=== PATIENT | male | born 1950 | race Caucasian/White ===

== ENCOUNTER 2019-10-28 23:57 | Emergency (ER) | payer MEDICARE, SELFPAY ==
[2019-10-29] VITALS (12 sets, daily range): BP systolic 147–163; BP diastolic 71–85; PULSE 84–130; RESP 20; TEMP 38.1–38.2; O2SAT 95–99
--- NOTE | 2019-10-29 00:05 | ED.ABDPAIN ---
HPI - Abdominal Pain General Chief Complaint: Fever Stated Complaint: lower left side pain/left facial pain/fever earlie Time Seen by Provider: 10/29/19 00:00 Source: patient Mode of arrival: Ambulatory Limitations: no limitations History of Present Illness HPI narrative: 69-year-old male nonsmoker with a history of diverticulitis and facial melanoma presents with a chief complaint of left lower quadrant pain and subjective fever over the course of the day. He has been in touch with the providers at the [facility] who instructed him to present here for further evaluation. He had been on a 2 year course of chemotherapy but last dose was back in April. He is currently on a ?watch and wait ?protocol. He denies runny nose, sore throat, cough, chest pain or exposure to known COVID 19. His pain is in left lower quadrant, worse with motion and improves with rest. He denies any radiation. He has been a bit constipated which is not abnormal for him given his history of narcotic use. He is a bit nauseated but denies any vomiting. MD complaint: abdominal pain Onset (ago): hour(s) Pain Consistency: constant Location: LLQ Severity: moderate Quality: cramping Radiation: none Migration to: no migration Relieving factors: rest Exacerbating factors: movement Associated symptoms: nausea, fever, chills and constipation Related Data Home Medications Medication Instructions Recorded Confirmed ACETAMINOPHEN 500 mg OR Q DAY PRN #0 08/17/16 ibuprofen 600 mg PO TID PRN #0 08/17/16 Previous Rx's Medication Instructions Recorded tadalafil [Cialis] 5 mg PO QDAY #15 tab 05/16/16 hydrocodone-acetaminophen 1 - 2 tab PO Q6HP PRN #30 tab 10/16/16 alprazolam 1 mg PO SEE INSTRUCTIONS #30 tab 10/17/16 ciprofloxacin HCl 500 mg PO BID #20 tab 10/29/19 metronidazole [Flagyl] 500 mg PO Q8H #30 tab 10/29/19 Review of Systems Constitutional Constitutional: Reports chills, Denies fatigue, Reports fever(s), Denies frequent falls, Denies lethargy and Denies weakness Eyes Eyes: Denies change in vision, Denies eye discharge, Denies irritation and Denies loss of vision ENT Ears, Nose, Mouth, and Throat: Denies change in voice, Denies dizziness, Denies neck pain, Denies sore throat and Denies throat swelling Cardiovascular Cardiovascular: Denies chest pain, Denies irregular heart rhythm, Denies lightheadedness, Denies palpitations, Denies dyspnea, Denies dyspnea on exertion and Denies orthopnea Respiratory Respiratory: Denies cough, Denies dyspnea, Denies dyspnea on exertion and Denies wheezing Gastrointestinal Gastrointestinal: Reports abdominal pain, Denies change in bowel habits, Denies diarrhea, Reports nausea and Denies vomiting Musculoskeletal Musculoskeletal: Denies neck pain and Denies numbness Integumentary/Breasts Skin/Breast: Denies pruritus, Denies erythema, Denies rash and Denies wounds Neurologic Neurologic: Denies behavioral changes, Denies confusion, Denies dizziness, Denies frequent falls, Denies loss of vision, Denies numbness and Denies weakness Psychiatric Psychiatric: Denies anxiety, Denies behavioral changes, Denies confusion, Denies depression, Denies homicidal ideation and Denies suicidal ideation Endocrine Endocrine: Denies fatigue, Denies flushing and Denies palpitations Hematologic/Lymphatic Hematologic/Lymphatic: Denies easy bruising Allergic/Immunologic Allergic/Immunologic: Denies urticaria, Denies throat swelling and Denies wheezing Exam Narrative Exam Narrative: GENERAL: [69] year old patient appears stated age. Well-nourished, well-developed patient, in mild distress. HEAD: Atraumatic. Normocephalic. EYES: Pupils equal round and reactive. Extraocular motions intact. No scleral icterus. No injection or drainage. ENT: Nose without bleeding, purulent drainage. Throat without erythema, tonsillar hypertrophy or exudate. Airway patent. NECK: Trachea midline. Non tender CARDIOVASCULAR: Tachycardic but regular rhythm without murmurs, gallops, or rubs. RESPIRATORY: Clear to auscultation. Breath sounds equal bilaterally. No wheezes, rales, or rhonchi. GASTROINTESTINAL: Abdomen soft, tender in LLQ, nondistended. EXTREMITIES: No edema or joint tenderness. BACK: Nontender without deformity or crepitance. No flank tenderness. NEURO: AOx3. SKIN: No rash or erythema of visible areas Initial Vital Signs Initial Vital Signs: Vital Signs Temperature 100.8 F H 10/29/19 00:08 Pulse Rate 130 H 10/29/19 00:08 Respiratory Rate 10/29/19 00:08 Blood Pressure 163/85 H 10/29/19 00:08 Pulse Oximetry 97 10/29/19 00:08 Course Orders Ordered: ED Orders 10/29/19 00:10 XR chest 1V Stat 10/29/19 00:25 Complete Blood Count AUTO DIFF Stat Comprehensive Metabolic Panel Stat Lactate (Lactic Acid) Stat Procalcitonin Stat 10/29/19 00:30 Blood Culture Stat 10/29/19 00:53 CT abdomen pelvis w con Stat 10/29/19 02:25 White Blood Cell Count Stat Discontinued Medications Hydrocodone Bitart/Acetaminophen (Vicodin 5/325 Prepack) 1 bottle MISC SEEINSTR ONE Stop: 10/29/19 03:01 Last Admin: 10/29/19 03:37 Dose: 1 bottle Documented by: NEPTALI Hydromorphone HCl (Dilaudid) 0.5 mg IV NOW ONE Stop: 10/29/19 00:13 Last Admin: 10/29/19 00:25 Dose: 0.5 mg Documented by: LILLY Lactated Ringer's (Lactated Ringers) 1,000 mls @ 771 mls/hr IV NOW ONE Stop: 10/29/19 01:27 Last Infusion: 10/29/19 01:40 Dose: 0 mls/hr Documented by: Admin: 10/29/19 00:24 Dose: 771 mls/hr Documented by: LILLY Levofloxacin (Levaquin) 500 mg in 100 mls @ 100 mls/hr IV NOW ONE Stop: 10/29/19 01:10 Last Infusion: 10/29/19 01:39 Dose: 0 mls/hr Documented by: Admin: 10/29/19 00:25 Dose: 100 mls/hr Documented by: LILLY Metronidazole (Flagyl) 500 mg in 100 mls @ 100 mls/hr IV NOW ONE Stop: 10/29/19 03:06 Last Infusion: 10/29/19 03:30 Dose: 0 mls/hr Documented by: Admin: 10/29/19 02:29 Dose: 100 mls/hr Documented by: NEPTALI Ketorolac Tromethamine (Toradol) 15 mg IV NOW ONE Stop: 10/29/19 02:08 Last Admin: 10/29/19 02:30 Dose: 15 mg Documented by: NEPTALI Ondansetron HCl (Zofran) 4 mg IV NOW ONE Stop: 10/29/19 00:13 Last Admin: 10/29/19 00:25 Dose: 4 mg Documented by: LILYL Ondansetron HCl (Zofran Odt Prepack) 1 bottle MISC SEEINSTR ONE Stop: 10/29/19 03:01 Last Admin: 10/29/19 03:37 Dose: 1 bottle Documented by: NEPTALI Reevaluation(s) Reevaluation #1: patient feeling much better after the above stated therapies. HR is now down to the 70s and 80s. pain improved. No rigors. Consultations Consultation #1: discussion with ammonia solution preparer surgery. We share opinion that though patient was initially demonstrating signs of possible sepsis that he has improved significantly. CT shows no sign of abscess or perforation. Vital Signs Vital signs: Vital Signs - 8 hr 10/29/19 00:08 10/29/19 00:32 10/29/19 01:00 Temperature 100.8 F H Pulse Rate 130 H 104 H 99 H Respiratory Rate 20 Blood Pressure 163/85 H Pulse Oximetry 97 97 95 10/29/19 01:14 10/29/19 01:30 10/29/19 01:36 Temperature Pulse Rate 96 H 96 H 89 Respiratory Rate 20 Blood Pressure 147/80 H 147/80 H Pulse Oximetry 99 97 97 10/29/19 02:00 10/29/19 02:30 10/29/19 02:50 Temperature 100.6 F H Pulse Rate 93 H 84 Respiratory Rate Blood Pressure Pulse Oximetry 96 98 10/29/19 03:00 10/29/19 03:30 Temperature Pulse Rate 96 H 85 Respiratory Rate Blood Pressure Pulse Oximetry 97 96 MDM - Abdominal Pain Lab Data Result diagrams: 10/29/19 02:25 10/29/19 00:25 Labs: Lab Results 10/29/19 10/29/19 10/29/19 Range/Units 00:25 00:25 00:25 WBC 20.5 H (4.5-11.0) X10^3/uL RBC 4.77 (4.5-5.9) X10^6/uL Hgb 14.9 (13.5-17.5) g/dL Hct 43.4 (41-53) % MCV 91.0 (80-100) fL MCH 31.1 (26-34) PG MCHC 34.2 (30-36) % RDW 14.0 (11.6-14.8) % Plt Count 247 (150-400) X10^3/uL Neut % (Auto) 83.9 H (50-75) % Lymph % (Auto) 7.2 L (25-40) % [place] % (Auto) 8.0 (3-14) % Eos % (Auto) 0.4 L (2-4) % Baso % (Auto) 0.5 (0-2) % Neut # (Auto) 89945 H (1913-1454) /uL Lymph # (Auto) 1500 (4146-2152) /uL [place] # (Auto) 1600 H (0-900) /uL Eos # (Auto) 100 (0-450) /uL Baso # (Auto) 100 (0-100) /uL Sodium 135 L (137-145) mmol/L Potassium 3.8 (3.4-5.1) mmol/L Chloride 100 (98-107) mmol/L Carbon Dioxide 25 (22-32) mmol/L BUN 28 H (9-20) mg/dL Creatinine 0.98 (0.66-1.25) mg/dL Estimated GFR > 60.0 (>60) mL/min BUN/Creatinine Ratio 28.6 H (6-22) Glucose 96 (80-110) mg/dL Lactate (0.7-2.1) mmol/L Calcium 9.8 (8.4-10.2) mg/dL Total Bilirubin 0.7 (0.2-1.3) mg/dL AST 35 (17-59) IU/L ALT 30 (<50) IU/L Alkaline Phosphatase 59 (38-126) U/L Total Protein 7.4 (6.3-8.2) g/dL Albumin 4.5 (3.5-5.0) g/dL Globulin 2.9 (1.7-4.1) g/dL Albumin/Globulin Ratio 1.6 (1.0-2.8) Procalcitonin < 0.05 (<0.5) ng/mL 10/29/19 10/29/19 Range/Units 00:25 02:25 WBC 20.2 H (4.5-11.0) X10^3/uL RBC (4.5-5.9) X10^6/uL Hgb (13.5-17.5) g/dL Hct (41-53) % MCV (80-100) fL MCH (26-34) PG MCHC (30-36) % RDW (11.6-14.8) % Plt Count (150-400) X10^3/uL Neut % (Auto) (50-75) % Lymph % (Auto) (25-40) % [place] % (Auto) (3-14) % Eos % (Auto) (2-4) % Baso % (Auto) (0-2) % Neut # (Auto) (6183-2736) /uL Lymph # (Auto) (3037-7646) /uL [place] # (Auto) (0-900) /uL Eos # (Auto) (0-450) /uL Baso # (Auto) (0-100) /uL Sodium (137-145) mmol/L Potassium (3.4-5.1) mmol/L Chloride (98-107) mmol/L Carbon Dioxide (22-32) mmol/L BUN (9-20) mg/dL Creatinine (0.66-1.25) mg/dL Estimated GFR (>60) mL/min BUN/Creatinine Ratio (6-22) Glucose (80-110) mg/dL Lactate 1.0 (0.7-2.1) mmol/L Calcium (8.4-10.2) mg/dL Total Bilirubin (0.2-1.3) mg/dL AST (17-59) IU/L ALT (<50) IU/L Alkaline Phosphatase (38-126) U/L Total Protein (6.3-8.2) g/dL Albumin (3.5-5.0) g/dL Globulin (1.7-4.1) g/dL Albumin/Globulin Ratio (1.0-2.8) Procalcitonin (<0.5) ng/mL Point of care testing: Urine Dip Bedside Urine Glucose 100 mg/dl Bedside Urine Ketone - Negative Urine Specific [place] 1.015 Bedside Urine Occult Blood - Negative Bedside Urine pH 6.0 Bedside Urine Protein - Negative Bedside Urine Urobilinogen - Negative Bedside Urine Nitrite - Negative Bedside Urine Leukocytes - Negative Esterase Imaging Data CT scan - abdomen/pelvis: Radiologist's Impression: Diverticulitis without sign of perforation or abscess MDM Narrative Medical decision making narrative: Patient presents with signs of sepsis. Aggressive fluids, pain control, ABX given. Patient clinically greatly improved. No perforation or abscess on imaging. Extensive discussion with patient and he would prefer to go home and return if he doesn't do ok at home. He understands return precautions and is in agreement with the plan. Discharge Plan Departure Patient Disposition: Home Clinical Impression: Diverticulitis Activity Restrictions/Additional Instructions: *You have been diagnosed with [acute diverticulitis without evidence of abscess or perforation] *What to do: *Take medications as directed. Please consider a clear liquid diet for the next 24-48 hours and then advance to a bananas, rice, apples, toast (BRAT) diet for a day or 2 and then advance as tolerated *Follow up with your primary care provider in 2-3 days, call for an appointment. Let them know you were seen in the Emergency Department and that we ask that you be seen in follow up *Return to ER if you should have any new, worsening or concerning symptoms, such as [worsening pain, ongoing shaking chills, vomiting or other bothersome symptoms] Prescriptions: New ciprofloxacin HCl 500 mg tablet 500 mg PO BID Qty: 20 RF: 0 metronidazole [Flagyl] 500 mg tablet 500 mg PO Q8H Qty: 30 RF: 0 No Action tadalafil [Cialis] 5 MG tablet 5 mg PO QDAY Qty: 15 RF: 5 ACETAMINOPHEN 500 mg OR Q DAY PRNQty: 0 RF: 0 ibuprofen 600 MG tablet 600 mg PO TID PRNQty: 0 RF: 0 hydrocodone-acetaminophen 5 MG/325 MG tablet 1 - 2 tab PO Q6HP PRNQty: 30 RF: 0 alprazolam 1 MG tablet 1 mg PO SEE INSTRUCTIONS Qty: 30 RF: 1 Referrals: Jackson Kendall MD [Primary Care Provider] - Brittani Horton MD [Physician] -
--- NOTE | 2019-10-29 00:10 | DI.RAD.S_ITS ---
PROCEDURE: XR CHEST 1V INDICATIONS: sepsis TECHNIQUE: One view of the chest was acquired. COMPARISON: None. FINDINGS: Surgical changes and devices: None. Lungs and pleura: Lungs are clear. No pleural effusions or pneumothorax. Mediastinum: Mediastinal contours appear normal. Heart size is normal. Bones and chest wall: No suspicious bony lesions. Overlying soft tissues appear unremarkable. IMPRESSION: No acute cardiopulmonary disease process. Dictated by: Rhona Lane MD, PhD on 10/29/2019 at 8:21 Approved by: Rhona Lane MD, PhD on 10/29/2019 at 8:21
[2019-10-29] MEDS: LACTATED RINGERS 1,000 ML 771 ML IV (00:24)
[2019-10-29] MEDS: HYDROMORPHONE 0.5 MG INJ IV (00:25)
[2019-10-29] MEDS: levoFLOXacin 500 MG/100 ML PIGGYBACK 100 MG IV (00:25)
[2019-10-29] MEDS: ONDANSETRON 4 MG/2 ML INJ IV (00:25)
[2019-10-29 00:40] LABS: Add Manual Diff / Slide Review NO; Basophils Absolute Auto 100 /uL (0-100); Basophils Percent Auto 0.5 % (0-2); Eosinophils Absolute Auto 100 /uL (0-450); Eosinophils Percent Auto 0.4 % (2-4); Hematocrit 43.4 % (41-53); Hemoglobin 14.9 g/dL (13.5-17.5); Lymphocytes Absolute Auto 1500 /uL (1100-4500); Lymphocytes Percent Auto 7.2 % (25-40); Mean Corpuscular HGB Conc 34.2 % (30-36); Mean Corpuscular Hemoglobin 31.1 PG (26-34); Monocytes Absolute Auto 1600 /uL (0-900); Neutrophils Absolute Auto 17200 /uL (1500-7000); Neutrophils Percent Auto 83.9 % (50-75); Platelet Count 247 X10^3/uL (150-400); Red Blood Cell Count 4.77 X10^6/uL (4.5-5.9); White Blood Cell Count 20.5 X10^3/uL (4.5-11.0)
[2019-10-29 00:48] LABS: Alanine Aminotransferase 30 IU/L (<50); Albumin 4.5 g/dL (3.5-5.0); Albumin Globulin Ratio 1.6 (1.0-2.8); Alkaline Phosphatase 59 U/L (38-126); Aspartate Aminotransferase 35 IU/L (17-59); BUN Creatinine Ratio 28.6 (6-22); Bilirubin Total 0.7 mg/dL (0.2-1.3); Blood Urea Nitrogen 28 mg/dL (9-20); Calcium 9.8 mg/dL (8.4-10.2); Carbon Dioxide 25 mmol/L (22-32); Chloride 100 mmol/L (98-107); Estimated Glomerular Filt Rate > 60.0 mL/min (>60); Globulin 2.9 g/dL (1.7-4.1); Glucose 96 mg/dL (80-110); HEMOLYSIS < 15 (0-50); Potassium 3.8 mmol/L (3.4-5.1); Sodium 135 mmol/L (137-145); Total Protein 7.4 g/dL (6.3-8.2)
--- NOTE | 2019-10-29 00:53 | DI.CT.S_ITS ---
PROCEDURE: CT ABDOMEN PELVIS W CON INDICATIONS: Severe Left lower quadrant pain, sepsis TECHNIQUE: After the administration of intravenous contrast, 5 mm thick sections acquired from the diaphragm to the symphysis. 5 mm coronal and sagittal reformats were acquired. For radiation dose reduction, the following was used: automated exposure control, adjustment of mA and/or kV according to patient size. COMPARISON: [place], [place], PET/CT SKULL BASE TO MID THIGH, 12/29/2016, 10:34. [facility], , STROKE PROTOCOL, 08/17/2016, 15:31. FINDINGS: Image quality: Excellent. ABDOMEN: Lung bases: Lung bases are clear. Heart size is normal. Solid organs: Liver is normal in size and enhancement. Gallbladder is normal. Biliary system is non dilated. Pancreas enhances normally. Spleen is normal in size and enhancement. No adrenal nodules. Kidneys demonstrate normal size and enhancement, without hydronephrosis. Peritoneum and bowel: There are numerous colonic diverticula. There is focal thickening and pericolonic stranding and sigmoid colon consistent with acute diverticulitis. There is a 1.7 x 1.8 x 2.2 cm complex rim enhancing fluid collection in the left lower quadrant adjacent to the sigmoid colon, consistent with a small diverticular abscess. A small amount of free fluid is present. No free air. Bowel loops demonstrate normal caliber. Nodes and vessels: No retroperitoneal or mesenteric adenopathy by size criteria. Aorta and inferior vena cava are normal in size. Miscellaneous: No ventral hernias. PELVIS: Genitourinary: Bladder wall thickness is normal. Bladder is distended. Prostate is enlarged. Miscellaneous: No inguinal hernias or adenopathy. Bones: No suspicious bony lesions. No vertebral body compression fractures. IMPRESSION: 1. Acute sigmoid diverticulitis. A small diverticular abscess is present in the left lower quadrant measuring 1.7 x 1.8 x 2.2 cm. No free air. 2. Enlarged prostate with distended urinary bladder suggesting bladder outlet obstruction. The preliminary report correctly described acute diverticulitis. The small diverticular abscess was not reported on the preliminary result. The result was discussed with Dr. Jaramillo in ER on 10/29/2019 at 0825 hours. Dictated by: Kelsie Rodriguez M.D. on 10/29/2019 at 8:09 Approved by: Kelsie Rodriguez M.D. on 10/29/2019 at 8:28
[2019-10-29 01:04] LABS: Procalcitonin < 0.05 ng/mL (<0.5)
[2019-10-29] MEDS: metroNIDAZOLE 500 MG/100 ML PIGGYBACK 100 MG IV (02:29)
[2019-10-29] MEDS: KETOROLAC 60 MG/2 ML VIAL 15 MG IV (02:30)
[2019-10-29 02:32] LABS: White Blood Cell Count 20.2 X10^3/uL (4.5-11.0)
[2019-10-29] MEDS: HYDROCODONE/ACET 5/325 PREPACK 1 BOTTLE MISC (03:37)
[2019-10-29] MEDS: ONDANSETRON 4 MG ODT PREPACK 1 BOTTLE MISC (03:37)
== END 2019-10-29 04:37 | disposition home or self-care (01) ==
PROVIDERS: Emergency Provider Emergency Medicine; PCP Family Medicine
DX: K57.92 Diverticulitis of intestine, part unspecified, without perforation or abscess without bleeding (principal); R50.9 Fever, unspecified; R11.0 Nausea; K59.00 Constipation, unspecified; R00.0 Tachycardia, unspecified
CPT/HCPCS: 36415; 71045; 74177; 80053; 81003; 83605; 84145; 85025; 85048; 87040; 96365; 96367; 96375; 99284; J1170; J1885; J1956; J2405; Q9967

== ENCOUNTER → 2022-04-04 11:33 | Outpatient (CLI) | payer MEDICARE, SELFPAY ==
--- NOTE | 2022-04-04 | DI.MRI.S_ITS ---
PROCEDURE: MR HEAD/BRAIN WO/W CON INDICATIONS: MALIGNANT MELANOMA OF SKIN TECHNIQUE: Noncontrast axial T1 spin echo, axial T2 fast spin echo, sagittal and axial FLAIR, coronal T2 fast spin echo, axial gradient echo, axial diffusion and ADC through the brain. After the administration of contrast, axial and coronal and sagittal T1 spin echo with fat saturation through the brain. COMPARISON: [facility], MR, STROKE PROTOCOL, 08/17/2016, 15:31. [facility], CT, HEAD WITHOUT CONTRAST, 08/17/2016, 14:32. [facility], [place], [place] PET CT FUSION WHOLE BODY, 03/15/2022, 10:23. Outside Facility, [place], CT SOFT TISSUE NECK WITH CONTRAST, 12/21/2021, 11:52. FINDINGS: Image quality: Excellent. CSF spaces: Basal cisterns are patent. No extra-axial fluid collections. Ventricles are normal in size and shape. Brain: No midline shift. No intracranial bleeds or masses. No abnormal intracranial enhancement. There is cerebral volume loss for age. There is periventricular white matter chronic small vessel ischemic change. The brainstem appears normal. Diffusion-weighted images demonstrate no acute ischemic insults. No chronic ischemic insults. Normal intravascular flow voids are present. Skull and face: In this patient with this given history, scrutiny is given to left-sided Molly. No focal abnormality can be seen at this site. No abnormal enhancement is seen. On the 2017 MRI, there can be seen a mass anterior to the left maxilla within the left medial cheek. No definite enhancing mass can be seen at this site. Calvarial marrow is normal in signal. Orbits appear normal. Sinuses: Sinuses and mastoids appear clear. IMPRESSION: No MRI abnormality is seen to correspond to the recent PET-CT abnormality involving the left zygoma. No recurrent mass is seen anterior to the left maxilla. No intracranial masses or abnormal enhancement can be seen. No findings of acute or subacute infarction can be seen. Dictated by: Felipe Anne M.D. on 04/04/2022 at 13:13 Approved by: Felipe Anne M.D. on 04/04/2022 at 13:18
== END ==
PROVIDERS: PCP Family Medicine; Referring Provider Internal Medicine Hematology & Oncology; Visit Provider Internal Medicine Hematology & Oncology
DX: C73 Malignant neoplasm of thyroid gland (principal); C43.9 Malignant melanoma of skin, unspecified; R93.0 Abnormal findings on diagnostic imaging of skull and head, not elsewhere classified
CPT/HCPCS: 70553; A9579

== ENCOUNTER → 2022-05-24 13:30 | Outpatient (CLI) | payer MEDICARE, SELFPAY ==
--- NOTE | 2022-05-24 | DI.MRI.S_ITS ---
PROCEDURE: MR FEMUR LT WO/W CON INDICATIONS: Malignant melanoma of skin/neoplasm of thyroid TECHNIQUE: Noncontrast coronal T1 spin echo and STIR, sagittal T1 spin echo with fat saturation and STIR, axial T1 spin echo and T2 fast spin echo with fat saturation. After the administration of contrast, axial/sagittal/coronal T1 spin echo with fat saturation through the left thigh. COMPARISON: [place], [place], [place] PET CT FUSION WHOLE BODY, 03/15/2022, 10:23. FINDINGS: Image quality: Excellent. Bones: The visualized bone marrow demonstrates normal signal on all sequences. The overlying cortex appears intact. No abnormal intraosseous enhancement. Soft tissues: No soft tissue masses are visualized. The scanned muscles demonstrate normal overall bulk and internal signal. No signal abnormality is noted within left semitendinosis muscle. No signal abnormality is seen in left gluteus muscles. No abnormal intramuscular enhancement. Visualized pelvis show normal bladder wall thickness and normal appearing prostate gland and seminal vesicles. No pelvic lymphadenopathy. No pelvic free fluid. IMPRESSION: 1. No enhancing soft tissue mass or fluid collection. No abnormal muscle signal. No area of abnormal intramuscular enhancement. Specifically, no signal abnormality is seen in left gluteus medius muscle or left semitendinosis muscle to account for PET-CT findings. Finding may represent resolved myositis. 2. No marrow signal abnormality. No suspicious intraosseous lesion or abnormal intraosseous enhancement. No evidence of avascular necrosis of femoral head. Dictated by: Andres Matson M.D. on 05/24/2022 at 16:13 Approved by: Andres Matson M.D. on 05/24/2022 at 16:17
== END ==
PROVIDERS: PCP Family Medicine; Referring Provider Internal Medicine Hematology & Oncology; Visit Provider Internal Medicine Hematology & Oncology
DX: C43.9 Malignant melanoma of skin, unspecified (principal); C73 Malignant neoplasm of thyroid gland
CPT/HCPCS: 73720

== ENCOUNTER → 2022-10-24 10:39 | Outpatient (CLI) | payer MEDICARE, SELFPAY ==
--- NOTE | 2022-10-24 | DI.CT.S_ITS ---
PROCEDURE: CT SOFT TISSUE NECK W CON INDICATIONS: CANCER OF THYROID TECHNIQUE: After the administration of intravenous contrast, 3.0 mm axial sections acquired from the sella to the aortic arch. Additional oblique axial 3.0 mm sections acquired through the pharynx. 3 mm thick coronal and sagittal reformats were generated. For radiation dose reduction, the following was used: automated exposure control. COMPARISON: Outside Facility, [place], CT SOFT TISSUE NECK WITH CONTRAST, 12/21/2021, 11:52. FINDINGS: Image quality: Excellent. Lymph nodes: No enlarged lymph nodes seen throughout the neck. Vessels: Visualized vasculature appears patent. Atherosclerotic vascular calcifications are present. Neck spaces: Again noted fatty atrophy of the left muscles of mastication. The oropharynx, nasopharynx, and pharynx demonstrate no mucosal lesions. The vocal cords, false vocal cords, pyriform sinuses, epiglottis, vallecula, and tongue base all appear normal. Extramucosal spaces appear unremarkable. Glands: The parotid and submandibular glands appear normal. Thyroid gland is surgically absent. no suspicious nodularity within the surgical bed. Miscellaneous: Visualized brain and orbits appear normal. Lung apices appear clear. Superficial soft tissues appear normal. Bones: No suspicious bony lesions. Degenerative changes of the cervical spine, worse at C5-C6. Visualized sinuses and mastoids appear unremarkable. Right mandibular 1st molar dental kathy is again noted. IMPRESSION: Stable postoperative appearance of thyroidectomy without evidence of local recurrence. No new or enlarging cervical lymphadenopathy. Dictated by: Barry Graham M.D. on 10/25/2022 at 8:45 Approved by: Barry Graham M.D. on 10/25/2022 at 8:53
== END ==
PROVIDERS: PCP Family Medicine; Referring Provider Radiology Radiation Oncology; Visit Provider Radiology Radiation Oncology
DX: C73 Malignant neoplasm of thyroid gland (principal); E89.0 Postprocedural hypothyroidism
CPT/HCPCS: 70491

== ENCOUNTER → 2023-06-18 12:29 | Outpatient (CLI) | payer MEDICARE, SELFPAY ==
--- NOTE | 2023-06-18 | DI.CT.S_ITS ---
PROCEDURE: CT CHEST W CON INDICATIONS: MALIGNANT MELANOMA TECHNIQUE: After the administration of intravenous contrast, 5 mm thick sections acquired from the pulmonary apices to the posterior costophrenic angles. 1 mm axial lung, 5 mm thick coronal and sagittal reformats and 7 mm axial MIP were acquired. For radiation dose reduction, the following was used: automated exposure control, adjustment of mA and/or kV according to patient size. COMPARISON: [facility] Facility, [place], CT PET WHOLE BODY, 09/24/2020, 13:10. FINDINGS: Image quality: Diagnostic. Lower Neck: No enlarged lymph nodes. Thyroid: Absent. Axillae: No enlarged lymph nodes. Chest Wall: Unremarkable. Bones: No suspicious osseous lesion. Lungs and Pleura: No pneumothorax or pleural effusions. No consolidation or suspicious nodules. Heart: Heart size is normal. No pericardial effusion. Thoracic Vessels: The aorta and pulmonary arteries demonstrate normal size. Mediastinum and [place]: No enlarged lymph nodes. Esophagus: No wall thickening. No hiatal hernia. Upper Abdomen: Visualized upper abdomen solid organs and bowel loops appear normal. Duodenal diverticulum. No adrenal nodule. IMPRESSION: 1. No mass or significant pulmonary nodules. 2. No adenopathy. 3. Lungs are clear. Dictated by: Chandan Benitez M.D. on 06/18/2023 at 15:34 Approved by: Chandan Benitez M.D. on 06/18/2023 at 15:39
[2023-06-18 12:59] LABS: Estimated Glomerular Filt Rate > 60 mL/min (>60)
== END ==
PROVIDERS: Radiology Diagnostic Radiology; PCP Family Medicine; Referring Provider Internal Medicine Hematology & Oncology; Visit Provider Internal Medicine Hematology & Oncology
DX: C43.9 Malignant melanoma of skin, unspecified (principal); C73 Malignant neoplasm of thyroid gland
CPT/HCPCS: 36415; 71260; 82565; Q9967

== ENCOUNTER → 2023-07-03 12:16 | Outpatient (CLI) | payer MEDICARE, SELFPAY ==
--- NOTE | 2023-07-03 12:22 | DI.CT.S_ITS ---
PROCEDURE: CT SOFT TISSUE NECK W CON INDICATIONS: Malignant melanoma of skin, TECHNIQUE: After the administration of intravenous contrast, 3.0 mm axial sections acquired from the sella to the aortic arch. 3 mm thick coronal and sagittal reformats were generated. For radiation dose reduction, the following was used: automated exposure control. COMPARISON: Outside Facility, [place], CT SOFT TISSUE NECK WITH CONTRAST, 02/24/2021, 11:50. [facility], MR, MR HEAD/BRAIN WO/W CON, 07/03/2023, 12:36. [facility], CT, CT SOFT TISSUE NECK W CON, 10/24/2022, 10:52. FINDINGS: Skull Base: The visualized intracranial contents, skull, and orbits are unremarkable. Visualized paranasal sinuses are clear. Pharynx and Larynx: The nasopharyngeal airway is patent and midline. Parapharyngeal soft tissues including palatine tonsils and base of the tongue are normal. Retropharyngeal space unremarkable. Normal appearance of the false and true vocal cords. Muscles and Fascial Planes: Complete fatty atrophy of the left pterygoid , masseter and visualized buccinator musculature Lymph Nodes: No evidence of adenopathy. Vasculature: Dense atherosclerotic vascular calcification the proximal carotid arteries Submandibular and Parotid Glands: Normal in size and attenuation. Thyroid: Thyroidectomy Bones: No acute fracture. No osteolytic or blastic lesion is evident. Normal bone mineralization. Lung Apices: The visualized lung apices are clear. IMPRESSION: 1. Stable fatty atrophy of the left infratemporal musculature probably related to prior cancer therapy. 2. No evidence of recurrent or residual disease status post thyroidectomy. No adenopathy. Approved by: Dov Elizondo M.D. on 07/03/2023 at 18:25
--- NOTE | 2023-07-03 12:22 | DI.MRI.S_ITS ---
PROCEDURE: MR HEAD/BRAIN WO/W CON INDICATIONS: Malignant melanoma of skin, TECHNIQUE: Noncontrast axial T1 spin echo, axial T2 fast spin echo, sagittal and axial FLAIR, coronal T2 fast spin echo, axial gradient echo, axial diffusion and ADC through the brain. After the administration of contrast, axial and coronal and sagittal T1 spin echo with fat saturation through the brain. COMPARISON: [facility], [place], NM PET CT FUSION WHOLE BODY, 12/13/2022, 10:20. [facility], MR, STROKE PROTOCOL, 08/17/2016, 15:31. [facility], MR, MR HEAD/BRAIN WO/W CON, 04/04/2022, 11:42. [facility], CT, HEAD WITHOUT CONTRAST, 08/17/2016, 14:32. [facility], CT, CT SOFT TISSUE NECK W CON, 07/03/2023, 13:17. FINDINGS: Image quality: Excellent. CSF spaces: Basal cisterns are patent. No extra-axial fluid collections. Ventricles are normal in size and shape. Brain: No midline shift. No intracranial bleeds or masses. No abnormal intracranial enhancement. There is cerebral volume loss for age. There is periventricular white matter chronic small vessel ischemic change. The brainstem appears normal. Diffusion-weighted images demonstrate no acute infarct. No chronic ischemic insults. Normal intravascular flow voids are present. Symmetric calcification can be seen involving the basal ganglia, which is considered to be normal for age. Skull and face: Calvarial marrow is normal in signal. Orbits appear normal. No masses are seen involving the left cheek. Sinuses: Sinuses and mastoids appear clear. IMPRESSION: No masses or abnormal enhancement can be seen. No masses are seen involving the left cheek, at the site of the previously identified mass. Dictated by: Felipe Anne M.D. on 07/03/2023 at 12:57 Approved by: Felipe Anne M.D. on 07/03/2023 at 13:05
== END ==
PROVIDERS: PCP Family Medicine; Visit Provider Internal Medicine Hematology & Oncology
DX: C73 Malignant neoplasm of thyroid gland; C43.9 Malignant melanoma of skin, unspecified; I65.29 Occlusion and stenosis of unspecified carotid artery
CPT/HCPCS: 70491; 70553; A9579; Q9967

== ENCOUNTER → 2024-02-20 11:30 | Outpatient (CLI) | payer MEDICARE, SELFPAY ==
--- NOTE | 2024-02-20 11:34 | DI.MRI.S_ITS ---
PROCEDURE: MR HEAD/BRAIN WO/W CON INDICATIONS: MALIGNANT MELANOMA TECHNIQUE: Noncontrast axial T1 spin echo, axial T2 fast spin echo, sagittal and axial FLAIR, coronal T2 fast spin echo, axial gradient echo, axial diffusion and ADC through the brain. After the administration of contrast, axial and coronal and sagittal T1 spin echo with fat saturation through the brain. COMPARISON: [facility], [place], NM PET CT FUSION WHOLE BODY, 12/13/2022, 10:20. [facility], MR, MR HEAD/BRAIN WO/W CON, 07/03/2023, 12:36. FINDINGS: Image quality: Excellent. CSF spaces: Basal cisterns are patent. No extra-axial fluid collections. Ventricles are normal in size and shape. Brain: No midline shift. No intracranial bleeds or masses. No abnormal intracranial enhancement. There is cerebral volume loss for age. There is periventricular white matter chronic small vessel ischemic change. The brainstem appears normal. Diffusion-weighted images demonstrate no acute infarct. No chronic ischemic insults. Normal intravascular flow voids are present. Skull and face: Calvarial marrow is normal in signal. Orbits appear normal. Sinuses: Sinuses and mastoids appear clear. IMPRESSION: 1. No acute intracranial process. No visualized metastatic disease. 2. Moderate atrophy and chronic microvascular ischemic changes. Dictated by: Anya Hall M.D. on 02/20/2024 at 17:53 Approved by: Anya Hall M.D. on 02/20/2024 at 17:55
--- NOTE | 2024-02-20 11:34 | DI.CT.S_ITS ---
PROCEDURE: CT CHEST ABD PEL W CON INDICATIONS: MALIGNANT MELANOMA TECHNIQUE: After the administration of intravenous contrast, 5 mm thick sections acquired from the lung apices to the symphysis. 5 mm coronal and sagittal reformats were performed, with additional 7 mm MIP reformats through the lungs. For radiation dose reduction, the following was used: automated exposure control, adjustment of mA and/or kV according to patient size. COMPARISON: CT, CT CHEST W CON, 06/18/2023, 12:14. [place], [place], CT PET CT FUSION WHOLE BODY, 12/13/2022, 10:20. CT, CT ABDOMEN PELVIS W CON, 10/29/2019, 0:51. FINDINGS: Image quality: Excellent. CHEST: Lower Neck: No enlarged lymph nodes. Thyroid: Appears removed with surgical clips. Axillae: No enlarged lymph nodes. Chest Wall: Unremarkable. Lungs and Pleura: No pneumothorax or pleural effusions. No consolidation or suspicious nodules. Heart: Heart size is normal. No pericardial effusion. Thoracic Vessels: The aorta and pulmonary arteries demonstrate normal size. Mediastinum and Maria Teresa: No enlarged lymph nodes. Esophagus: No wall thickening. No hiatal hernia. ABDOMEN: Liver: No solid mass. Gallbladder: No radiopaque gallstones or wall thickening. Biliary ducts: No biliary dilation. Pancreas: No ductal dilation. Spleen: Size is within normal limits. Adrenal Glands: No adrenal nodules. Kidneys and Ureters: No hydronephrosis. No solid mass. No complex renal cystic lesion which requires follow up. Stomach and Bowel: Normal colonic caliber, without significant wall thickening. Diverticulosis. Peritoneum: No abnormal intraperitoneal fluid. No free air. Ventral Wall: No significant ventral hernia. Abdominal Nodes: No retroperitoneal or mesenteric adenopathy by size criteria. Vessels: Aorta and inferior vena cava are normal in size. PELVIS: Pelvic Organs: Prostate gland is. Bladder: No bladder wall thickening, accounting for underdistention. Pelvic Nodes: No enlarged lymph nodes. Miscellaneous: No inguinal hernias are seen. Bones: No aggressive osseous abnormality. IMPRESSION: No evidence malignancy. Diverticulosis. Dictated by: Anya Hall M.D. on 02/20/2024 at 17:03 Approved by: Anya Hall M.D. on 02/20/2024 at 17:11
--- NOTE | 2024-02-20 11:34 | DI.CT.S_ITS ---
PROCEDURE: CT SOFT TISSUE NECK W CON INDICATIONS: MALIGNANT MELANOMA TECHNIQUE: After the administration of intravenous contrast, 3.0 mm axial sections acquired from the sella to the aortic arch. Additional oblique axial 3.0 mm sections acquired through the pharynx. 3 mm thick coronal and sagittal reformats were generated. For radiation dose reduction, the following was used: automated exposure control. COMPARISON: [facility], [place], NM PET CT FUSION WHOLE BODY, 12/13/2022, 10:20. [facility], MR, MR HEAD BRAIN WO W CON, 02/20/2024, 13:42. [facility], CT, CT SOFT TISSUE NECK W CON, 07/03/2023, 13:17. Outside Facility, [place], CT SOFT TISSUE NECK WITH CONTRAST, 12/21/2021, 11:52. [facility], CT, CT CHEST ABD PEL W CON, 02/20/2024, 12:35. (Additional prior imaging is not available for review from the archive at the time of this dictation.) FINDINGS: Image quality: There is artifact associated with the metallic hardware. Artifact from the metallic hardware is reduced by metal reconstruction algorithm. There is streak artifact seen through the level of the shoulders. Lymph nodes: Focal atherosclerotic calcification and irregularity can be seen involving the origins of the internal carotid arteries, with at least 90% narrowing on the right and approximately 80% narrowing on the left. Vessels: Visualized vasculature appears patent. 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 Neck spaces: The oropharynx, nasopharynx, and pharynx demonstrate no mucosal lesions. The vocal cords, false vocal cords, pyriform sinuses, epiglottis, vallecula, and tongue base all appear normal. Glands: The parotid and submandibular glands appear normal. Thyroid gland has been resected. Within the thyroid bed, no soft tissue abnormalities are seen. Miscellaneous: Visualized brain and orbits appear normal. Lung apices appear clear. Fatty atrophy of the left facial muscles can again be seen. Bones: No suspicious bony lesions. Visualized sinuses and mastoids appear unremarkable. [id number] cervical spine degenerative change can be seen. IMPRESSION: No masses or enlarged lymph nodes are seen. Prior thyroidectomy. No soft tissue abnormalities can be seen in the thyroid bed. Significant bilateral narrowing can be seen involving the origins of the internal carotid arteries, at least 90% on the right and approximately 80% on the left. There is again seen fatty atrophy of the left facial muscles. Please correlate with prior radiation treatment. Dictated by: Felipe Anne M.D. on 02/20/2024 at 13:16 Approved by: Felipe Anne M.D. on 02/20/2024 at 13:30
== END ==
PROVIDERS: PCP Family Medicine; Visit Provider Internal Medicine Hematology & Oncology
DX: C43.39 Malignant melanoma of other parts of face (principal); I65.23 Occlusion and stenosis of bilateral carotid arteries; E89.0 Postprocedural hypothyroidism; K57.90 Diverticulosis of intestine, part unspecified, without perforation or abscess without bleeding
CPT/HCPCS: 70491; 70553; 71260; 74177; A9579; Q9967

== ENCOUNTER → 2025-02-17 10:39 | Outpatient (CLI) | payer OTHER, SELFPAY ==
--- NOTE | 2025-02-17 10:42 | DI.MRI.S_ITS ---
PROCEDURE: MR HEAD/BRAIN WO/W CON
--- NOTE | 2025-02-17 10:43 | DI.CT.S_ITS ---
PROCEDURE: CT CHEST ABD PEL W CON
[2025-02-17 11:45] LABS: Estimated Glomerular Filt Rate > 60 mL/min (>60)
--- NOTE | 2025-02-17 14:56 | DI.CT.S_ITS ---
PROCEDURE: CT SOFT TISSUE NECK W CON
== END ==
PROVIDERS: PCP Family Medicine; Referring Provider Internal Medicine Hematology & Oncology; Visit Provider Internal Medicine Hematology & Oncology
DX: C43.9 Malignant melanoma of skin, unspecified (principal); R97.1 Elevated cancer antigen 125 [CA 125]; I65.23 Occlusion and stenosis of bilateral carotid arteries; E89.0 Postprocedural hypothyroidism; I25.10 Atherosclerotic heart disease of native coronary artery without angina pectoris; K57.90 Diverticulosis of intestine, part unspecified, without perforation or abscess without bleeding; M47.816 Spondylosis without myelopathy or radiculopathy, lumbar region; N40.0 Benign prostatic hyperplasia without lower urinary tract symptoms; Z85.850 Personal history of malignant neoplasm of thyroid
CPT/HCPCS: 36415; 70491; 70553; 71260; 74177; 82565; A9579; Q9967